=== PATIENT | female | born 1990 | race African-American/Black ===

== ENCOUNTER 2018-05-15 12:50 | Day surgery (SDC) | payer OTHER ==
[2018-05-11 10:41] VITALS: BMI 32.4
[2018-05-15] MEDS ORDERED: ROPIVACAINE HCL 0.5% 30ML VIAL ONE (14:56)
[2018-05-15] MEDS ORDERED: MIDAZOLAM HCL 2 MG/2 ML SINGLE DOSE VIAL ONE ×2 (15:01→15:23)
[2018-05-15] MEDS ORDERED: PROPOFOL 20 ML ONE ×2 (15:23→16:29)
[2018-05-15] MEDS ORDERED: ROCURONIUM BROMIDE 50 MG/5 ML VIAL ONE (15:23)
[2018-05-15] MEDS ORDERED: DEXAMETHASONE SOD PHOSPHATE 4 MG/1 ML VIAL ONE (15:27)
[2018-05-15] MEDS ORDERED: ONDANSETRON 4 MG/2 ML VIAL ONE (15:27)
[2018-05-15] MEDS ORDERED: LIDOCAINE HCL/PF 2% SDV 5ML VIAL ONE (15:27)
[2018-05-15] MEDS ORDERED: ceFAZolin SODIUM 1 GM VIAL ONE (16:15)
--- NOTE | 2018-05-15 16:24 | OP ---
Operative Note - Note: Operative Date: 05/15/18 Pre-Operative Diagnosis: Traumatic left shoulder: 1. Impingement Syndrome Operation: Left shoulder open: 1. Andressa procedure. 2. Neer decompression. 3. Rotator cuff repair (partial thickness tear) Post-Operative Diagnosis: Same as Pre-op Surgeon: Héctor Sewell Anesthesiologist/TALENT ACQUISITION PROJECT MANAGER: Bernard Queen Anesthesia: General, Local (Scalene block) Specimens Removed: Excision arthroplasty left AC joint Estimated Blood Loss (mls): 75 Fluid Volume Replaced (mls): 800 (Crystalloid) Operative Report Dictated: Yes
--- NOTE | 2018-05-15 16:25 | PN ---
Progress Note (short form) - Note Progress Note: 27F s/p LEFT shoulder open Andressa procedure, Neer Decompression, & rotator cuff repair POD #0. -Pain control: Meloxicam & oxycodone PRN. -Incentive spirometry. -No chemical DVT PPx. -LUE ABDUCTION sling at all times. -No LEFT shoulder ROM. -Daily LEFT elbow, wrist & hand ROM. -Keep dressing clean & dry. -f/u in [facility] [place] [facility] on Friday05/22/2018; call for appointment ; . Héctor Sewell MD (Orthopaedic Surgery).
[2018-05-15] MEDS ORDERED: oxyCODONE HCL 5 MG TABLET PO PRN ×2 (16:28)
[2018-05-15] MEDS ORDERED: ONDANSETRON 4 MG/2 ML VIAL IVPUSH PRN (16:28)
[2018-05-15] MEDS ORDERED: LACTATED RINGERS SOLUTION 1,000 ML IV SCH (16:30)
[2018-05-15] MEDS ORDERED: KETOROLAC TROMETHAMINE 30 MG/1 ML VIAL IVPUSH ONE (17:39)
[2018-05-15 19:20] VITALS: TEMP 98.3
[2018-05-15 19:36] VITALS: BP 118/71; PULSE 62
--- NOTE | 2018-05-16 07:32 | OP ---
DATE OF OPERATION: 05/15/2018 SURGEON: Héctor Sewell MD PREOPERATIVE DIAGNOSIS: Rotator cuff impingement with rotator cuff tear. POSTOPERATIVE DIAGNOSIS: Rotator cuff impingement with rotator cuff tear. OPERATION PERFORMED: Left: 1. Excision arthroplasty, clavicle (Andressa). 2. Acromioplasty. 3. Transection of coracoacromial ligament. 4. Repair of rotator cuff. ANESTHESIA: General. ANTIBIOTICS GIVEN: Kefzol 2 g, vancomycin 1 g. OPERATION IN DETAIL: With the patient supine on a shoulder beach chair position frame, the left shoulder region was prepped, draped with Betadine scrub solution, wiped with alcohol, DuraPrep, and a full free-arm drape applied. The incision was taken from the tip of the acromion to the tip of the coracoid process in the lines of Karina. The incision was made, subcutaneous dissection performed at this down to the deltoid. The muscle, that is the deltoid muscle, as well as trapezial muscle was aberrantly large and bulky, but the AC joint was identified, and the superior surface of the clavicle freed of soft tissue, and an excision arthroplasty with an oscillating saw performed. This brought about a complete freeing into the subacromial space just simply with that excision arthroplasty. The deltoid was not split. It was lifted with a peanut. The deltoid was lifted to achieve very adequate transection of the CA ligament. Once this had been performed, with finger dissection, the subacromial space was entered, and a blunt Hohmann placed on the underlip surface of the acromion, leaving the humeral head down, and a very prominent, beaked acromion was then resected using an oscillating saw, freeing the entire rotator cuff completely. The rotator cuff then was inspected. The bursa was prolific. Some of this was debrided. The entire cuff was inspected, found to have a small, 1-cm, mid-substance tear. This was a chronic tear with avascular edges. This was excised using a 15 blade, and 1 Vicryl sutures placed into the rotator cuff for a repair. Solid and watertight seal repair achieved. The wound was closed as follows: The excision arthroplasty, the tissues of the AC joint were then bunched together and sutured with 1 Vicryl, subcutaneous 1 and 2-0 Vicryl, skin 3-0 Monocryl and Steri-Strips. Drainage: Nil. Full hemostasis was achieved at the time of the procedure. A sling was applied. No complications. Operation went well. Héctor Sewell MD [id number]
--- NOTE | 2018-05-19 17:40 | PATH ---
Surgical Pathology Report Patient Name: SEE CONTI Med. Rec. #: [id number] /Age/Gender: 1990 (Age: 27) / F Account: [id number] Location: [facility] Taken: 05/15/2018 Received: 05/18/2018 Reported: 05/19/2018 Physicians: Héctor Sewell M.D. Specimen(s) Received PORTION OF LEFT DISTAL CLAVICLE Clinical History Impingement syndrome left shoulder Final Diagnosis PORTION OF LEFT DISTAL CLAVICLE, EXCISION: CARTILAGE CAPPED BONE WITH DEGENERATIVE CHANGE AND TRILINEAGE HEMATOPOIETIC MARROW. Electronically Signed George Stuart M.D. Gross Description Received in formalin labeled "portion of left distal clavicle," is a 2.3 x 1.2 x 1.0 cm reid, irregular portion of bone. Food Quality Technician sections are submitted in one cassette, following decalcification. /05/18/2018 saudi05/18/2018
== END 2018-05-15 20:00 | disposition home or self-care (01) ==
LOC: FASU 12:50
PROVIDERS: ATTEND Orthopaedic Surgery Orthopaedic Surgery of the Spine
PROC: 0MN20ZZ Release Left Shoulder Bursa and Ligament, Open Approach (ICD-10-PCS; 2018-05-15)
PROC: 0LQ20ZZ Repair Left Shoulder Tendon, Open Approach (ICD-10-PCS; 2018-05-15)
PROC: 0PBB0ZZ Excision of Left Clavicle, Open Approach (ICD-10-PCS; principal; 2018-05-15 16:30)
DX: M75.42 Impingement syndrome of left shoulder (principal); M75.122 Complete rotator cuff tear or rupture of left shoulder, not specified as traumatic
CPT/HCPCS: 84703; 88304-TC; 94760